=== PATIENT | male | born 1985 | race Two or more races ===

== ENCOUNTER 2017-12-06 20:52 | Emergency (ER) | payer SELFPAY ==
[~2017-12-06] VITALS: Ht 172.7 cm; Wt 93.0 kg
[2017-12-06 20:56] VITALS: BP 117/98
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
--- NOTE | 2017-12-06 22:24 | RADIOLOGY IMAGING REPORT ---
FAC[facility]: [facility] PATIENT NAME: Guru Roe : 1985 MR: [id number] V: [id number] EXAM DATE: ORDERING PHYSICIAN: MARIA INES LLANOS TECHNOLOGIST: Location: [facility] [place] Patient: Guru Roe : 1985 Visit/Account:[id number] Date of Sevice: 12/06/2017 EXAMINATION: Right elbow 3 views HISTORY: Fall. Right elbow pain. COMPARISON: None. FINDINGS: On the lateral view there is a linear ossific density projecting just anterior to the joint space, me asuring approximately 10 x 3 mm. This is not well visualized on the other views and is of uncertain e tiology. This may represent a small avulsive fracture fragment which could be acute or chronic. No vi sualized donor site. No other acute osseous findings at the right elbow. Normal alignment. Joint spaces are preserved. Soft tissues are radiographically unremarkable. No visualized elbow joint effusion on the lateral vie w. IMPRESSION: 1. Small linear ossific density projecting anterior to the joint space on the lateral view. This is o f uncertain etiology but may represent a small avulsive fracture fragment which could be acute or chr onic. Donor site is not clearly defined. 2. No other acute osseous findings at the right elbow. 3. No visualized elbow joint effusion. Report Dictated By: Mehrdad Santana MD at 12/06/2017 10:15 PM Report E-Signed By: Mehrdad Santana MD at 12/06/2017 10:20 PM WSN:[id number]
[2017-12-06] MEDS ORDERED: IBUPROFEN 600 MG TAB TH PO ONE (23:00)
[2017-12-06] MEDS ORDERED: IBUPROFEN 800 MG TAB PO ONE (23:00)
== END 2017-12-06 23:00 ==
LOC: ER 21:15
DX: S42.402A Unspecified fracture of lower end of left humerus, initial encounter for closed fracture (principal)
CPT/HCPCS: 29105; 73080; 99283; A4565